=== PATIENT | male | born 1965 | race Caucasian/White ===

== ENCOUNTER 2023-04-23 05:10 | Day surgery (SDC) | payer OTHER ==
[2023-04-21 12:05] VITALS: BMI 30.9
[~2023-04-23 05:10] MED LIST: BUPIVACAINE HCL/PF 0.5% (5MG/ML) 10 ML VIAL IJ ONE; LIDOCAINE 1%/EPI 1:100000 (20 ML MULTI DOSE VIAL) IJ ONE; ceFAZolin SODIUM 1 GM VIAL IVPB ONE
[2023-04-23] MEDS ORDERED: SUCCINYLCHOLINE CHLORIDE 200 MG/10 ML SYRINGE ONE (14:22)
[2023-04-23] MEDS ORDERED: PROPOFOL 20 ML ONE (14:22)
[2023-04-23] MEDS ORDERED: MIDAZOLAM HCL 2 MG/2 ML SINGLE DOSE VIAL ONE (14:22)
[2023-04-23] MEDS ORDERED: BUPIVACAINE HCL/PF 0.5% (5MG/ML) 10 ML VIAL ONE (14:46)
[2023-04-23] MEDS ORDERED: ACETAMINOPHEN 325 MG TABLET (FP) PO PRN (15:19)
[2023-04-23] MEDS ORDERED: ONDANSETRON 4 MG/2 ML VIAL IVPUSH PRN (15:19)
[2023-04-23] MEDS ORDERED: oxyCODONE HCL 5 MG TABLET PO PRN (15:19)
[2023-04-23] MEDS ORDERED: LACTATED RINGERS SOLUTION 1,000 ML IV SCH (15:30)
[2023-04-23] MEDS ORDERED: ONDANSETRON 4 MG/2 ML VIAL ONE (15:37)
[2023-04-23] MEDS ORDERED: ceFAZolin SODIUM 1 GM VIAL ONE ×2 (15:37)
[2023-04-23] MEDS ORDERED: ceFAZolin SODIUM 1 GM VIAL IVPB ONE (15:38)
[2023-04-23] MEDS ORDERED: BUPIVACAINE HCL/PF 0.5% (5MG/ML) 10 ML VIAL IJ ONE ×2 (16:00)
[2023-04-23] MEDS ORDERED: LIDOCAINE 1%/EPI 1:100000 (20 ML MULTI DOSE VIAL) IJ ONE ×2 (16:00)
[2023-04-23] MEDS ORDERED: MICROFIBRILLAR COLLAGEN 1 GM EACH TP ONE (16:39)
[2023-04-23] MEDS ORDERED: ACETAMINOPHEN 1000 MG/100 ML BAG IVPB ONE ×2 (17:09→17:22)
[2023-04-23] MEDS ORDERED: ACETAMINOPHEN INJECTION 100 ML IVPB ONE (17:12)
[2023-04-23 19:07] VITALS: PULSE 69; RESP 18
[2023-04-23 20:14] VITALS: BP 135/72; TEMP 97.5
== END 2023-04-23 20:00 | disposition home or self-care (01) ==
LOC: JASU-SURG 05:10 → EDSTATUS 12:00 → JASU-SURG 20:00
PROVIDERS: ATTEND Surgery
PROC: 0GTH0ZZ Resection of Right Thyroid Gland Lobe, Open Approach (ICD-10-PCS; principal; 2023-04-23 14:00)
DX: D34 Benign neoplasm of thyroid gland (principal)
CPT/HCPCS: 82962; 86850; 86900; 86901; 88307-TC; 88341-TC; 88342-TC; 94760